=== PATIENT | female | born 1940 | race Caucasian/White ===

== ENCOUNTER 2020-03-09 18:06 | Emergency (ER) | payer OTHER, MEDICAID ==
[~2020-03-09] VITALS: Ht 160 cm; Wt 44.5 kg
[2020-03-09 18:13] VITALS: BP_SYST 130
--- NOTE | 2020-03-09 18:18 | NUR ---
Patient to ER bed H1 to gown for evaluation. Side rails up.
--- NOTE | 2020-03-09 19:07 | NUR ---
Pt moved to bed 04
--- NOTE | 2020-03-09 20:00 | NUR ---
Dr. Bhatt bedside for pt eval
[2020-03-09] MEDS ORDERED: NACL 0.9% 1,000 ML IV ONE (20:02)
--- NOTE | 2020-03-09 20:10 | NUR ---
Pt [facility]IAN from facility to ED C/O gradual onset of worsening bilateral leg ulcers on her lower 1/3 of her leg, left worse than right, for the last few months. Patient states she first hit her left leg, which developed in cellulitis requiring a PICC line and treatment at a SNF. Patient is A&O x 2. Patient is ambulatory with walker. Has a history of hyperlipidemia but no history of diabetes
[2020-03-09 20:55] LABS: BILIRUBIN,URINE NEGATIVE (NEGATIVE); COLOR,URINE YELLOW (YELLOW); GLUCOSE,URINE NEGATIVE (NEGATIVE); KETONES,URINE NEGATIVE (NEGATIVE); NITRITE, URINE NEGATIVE (NEGATIVE); PROTEIN URINE NEGATIVE (NEGATIVE); UROBILINOGEN,URINE 0.2 (0.2-1.0)
[2020-03-09 20:58] LABS: BASOPHILS # (AUTO) 0.1 K/uL (0.0-0.2); BASOPHILS % (AUTO) 0.6 % (0.0-2.0); EOSINOPHILS # (AUTO) 0.1 K/uL (0.0-0.4); EOSINOPHILS % (AUTO) 1.1 % (0.0-4.0); LYMPHOCYTES # (AUTO) 1.3 K/uL (1.0-5.5); LYMPHOCYTES % (AUTO) 12.1 % (20.5-51.5); MEAN CORPUSCULAR HEMOGLOBIN 27 pg (27-31); MEAN CORPUSCULAR HGB CONC 33 % (32-36); MEAN CORPUSCULAR VOLUME 84 fL (79.0-98.0); MONOCYTES # (AUTO) 0.7 K/uL (0.0-1.0); MONOCYTES % (AUTO) 6.7 % (1.7-9.3); NEUTROPHILS # (AUTO) 8.4 K/uL (1.8-7.7); NEUTROPHILS % (AUTO) 79.5 % (40.0-70.0); PLATELET COUNT (AUTO) 421 K/uL (130-430); RED BLOOD CELL COUNT(AUTO) 4.41 MIL/uL (4.2-6.2); RED CELL DISTRIBUTION WIDTH 14.4 % (9.0-15.0); WHITE BLOOD COUNT (AUTO) 10.6 K/uL (4.8-10.8)
[2020-03-09 21:01] LABS: BLOOD, URINE TRACE (NEGATIVE); CLARITY/URINE HAZY (CLEAR); LEUKOCYTE ESTERASE ,URINE 2+ (NEGATIVE)
[2020-03-09 21:03] LABS: BACTERIA,URINE MODERATE /HPF (None Seen); MUCUS,URINE None Seen /LPF (None Seen); RBC,URINE NONE SEEN /HPF (0-3); WBC,URINE 20-50 /HPF (0-3)
[2020-03-09 21:08] LABS: ANION GAP 8 (5-15); CALCIUM 9.7 mg/dL (8.4-11.0); CHLORIDE 99 mmol/L (98-107); CREATININE 0.72 mg/dL (0.55-1.30); GLUCOSE 98 mg/dL (70-99); POTASSIUM 3.7 mmol/L (3.5-5.1); SODIUM SERUM 136 mmol/L (136-145); UREA NITROGEN, BLOOD 23 mg/dL (8-21)
[2020-03-09 21:14] LABS: ALANINE AMINOTRANSFERASE 8 U/L (12-78); ALBUMIN 3.1 g/dL (3.4-4.8); ASPARTATE AMINOTRANSFERASE 15 U/L (10-37); TOTAL BILIRUBIN 0.3 mg/dL (0.0-1.0)
--- NOTE | 2020-03-09 21:15 | NUR ---
VSS no s/s of acute distress Resting on gurney rails up
--- NOTE | 2020-03-09 22:20 | NUR ---
Dr. Bhatt bedside to re - eval , and pt update
[2020-03-09] MEDS ORDERED: NITROFURANTOIN MONOHYD/M-CRYST 100 MG CAPSULE PO ONE (22:45)
[2020-03-09] MEDS ORDERED: CHOL500037 PO (23:29)
[2020-03-09] MEDS ORDERED: MOM PO (23:29)
[2020-03-09] MEDS ORDERED: HYDR-4038 PO (23:29)
[2020-03-09] MEDS ORDERED: MULT-1117 PO (23:29)
[2020-03-09] MEDS ORDERED: DOCU-144 PO (23:29)
[2020-03-09] MEDS ORDERED: ASCO500T20 PO (23:29)
[2020-03-09] MEDS ORDERED: ACET-2165 PO (23:29)
--- NOTE | 2020-03-09 23:30 | NUR ---
Pt understand she will be going back to facility
--- NOTE | 2020-03-10 01:00 | NUR ---
Patient given written and verbal discharge instructions and verbalizes understanding. ER MD discussed with patient the results and treatment provided. Patient in stable condition. ID arm band removed. IV catheter removed intact and dressing applied, no active bleeding. Rx of Macrobid given. Patient educated on pain management and to follow up with PMD. Pain Scale 0/10 Opportunity for questions provided and answered. Medication side effect fact sheet provided.
[2020-03-10 02:48] VITALS: BP_SYST 134
--- NOTE | 2020-03-10 02:48 | NUR ---
Pt transported back to facility with [facility]
== END 2020-03-10 02:48 | disposition home or self-care (01) ==
LOC: SED 18:06
DX: L97.829 Non-pressure chronic ulcer of other part of left lower leg with unspecified severity (principal); N39.0 Urinary tract infection, site not specified; E78.5 Hyperlipidemia, unspecified; Z79.899 Other long term (current) drug therapy; Z88.0 Allergy status to penicillin; Z88.1 Allergy status to other antibiotic agents; Z88.2 Allergy status to sulfonamides
CPT/HCPCS: 36415; 80053; 81000; 83605; 85025; 87040; 87086; 96360; 96361 ×2; 99283; J7030